=== PATIENT | female | born 1965 | race Caucasian/White ===

== ENCOUNTER → 2016-08-15 | Outpatient (CLI) | payer BC ==
[2016-08-15 14:33] LABS: ALBUMIN 3.7 GM/DL (3.2-5.2); ANION GAP 5 MEQ/L (8-16); BLOOD UREA NITROGEN 12 MG/DL (7-18); CALCIUM LEVEL 8.9 MG/DL (8.5-10.1); CARBON DIOXIDE LEVEL 32 MEQ/L (21-32); CHLORIDE LEVEL 104 MEQ/L (98-107); CREATININE FOR GFR 0.71 MG/DL (0.55-1.02); GLOMERULAR FILTRATION RATE > 60.0 (>51); GLUCOSE, FASTING 134 MG/DL (70-105); PHOSPHORUS LEVEL 3.2 MG/DL (2.5-4.9); POTASSIUM SERUM 4.1 MEQ/L (3.5-5.1); SODIUM LEVEL 141 MEQ/L (136-145)
== END ==
LOC: M SMT 08:26
PROVIDERS: ATTEND Internal Medicine Nephrology
DX: E10.21 Type 1 diabetes mellitus with diabetic nephropathy (principal)

== ENCOUNTER → 2017-11-04 | Outpatient (CLI) | payer OTHER ==
[2017-11-04 10:48] LABS: APPEARANCE, URINE CLEAR (CLEAR); BACTERIA, URINE AUTO NEGATIVE (NEGATIVE); BILIRUBIN, URINE AUTO NEGATIVE (NEGATIVE); BLOOD, URINE BLOOD NEGATIVE (NEGATIVE); COLOR, URINE YELLOW (YELLOW); GLUCOSE, URINE (UA) AUTO 3+ mg/dL (NEGATIVE); KETONE, URINE AUTO NEGATIVE (NEGATIVE); LEUKOCYTE ESTERASE, URINE AUTO NEGATIVE (NEGATIVE); MUCUS, URINE SMALL (NEGATIVE); NITRITE, URINE AUTO NEGATIVE (NEGATIVE); PROTEIN, URINE AUTO NEGATIVE (NEGATIVE); RBC, URINE AUTO 0 /HPF (0-3); SPECIFIC GRAVITY URINE AUTO 1.029 (1.002-1.035); SQUAMOUS EPITHELIAL CELL UR AU 1 /HPF (0-6); UROBILINOGEN, URINE AUTO 0.2 mg/dL (0.0-2.0); WBC, URINE AUTO 0 /HPF (0-3)
[2017-11-04 10:58] LABS: ESTIMATED AVERAGE GLUCOSE 183 MG/DL (60-110)
[2017-11-04 11:08] LABS: ALBUMIN 3.7 GM/DL (3.2-5.2); ANION GAP 6 MEQ/L (8-16); BLOOD UREA NITROGEN 13 MG/DL (7-18); CALCIUM LEVEL 8.9 MG/DL (8.5-10.1); CARBON DIOXIDE LEVEL 31 MEQ/L (21-32); CHLORIDE LEVEL 104 MEQ/L (98-107); CREATININE FOR GFR 0.73 MG/DL (0.55-1.30); GLOMERULAR FILTRATION RATE > 60.0 (>51); GLUCOSE, FASTING 175 MG/DL (70-100); PHOSPHORUS LEVEL 3.6 MG/DL (2.5-4.9); POTASSIUM SERUM 4.8 MEQ/L (3.5-5.1); SODIUM LEVEL 141 MEQ/L (136-145)
[2017-11-04 11:18] LABS: CREATININE, URINE 53.8 MG/DL; MALB URINE SIEMENS < 5.0 MG/L; MAU/CREAT RATIO 9.2 MCG/MG (0.0-30.0)
== END ==
LOC: M LAB 09:41
DX: E10.21 Type 1 diabetes mellitus with diabetic nephropathy (principal)
CPT/HCPCS: 80069

== ENCOUNTER → 2018-07-02 | Outpatient (CLI) | payer OTHER ==
[2018-07-02 07:13] LABS: APPEARANCE, URINE CLEAR (CLEAR); BACTERIA, URINE AUTO NEGATIVE (NEGATIVE); BILIRUBIN, URINE AUTO NEGATIVE (NEGATIVE); BLOOD, URINE BLOOD NEGATIVE (NEGATIVE); COLOR, URINE YELLOW (YELLOW); GLUCOSE, URINE (UA) AUTO 3+ mg/dL (NEGATIVE); KETONE, URINE AUTO NEGATIVE (NEGATIVE); LEUKOCYTE ESTERASE, URINE AUTO NEGATIVE (NEGATIVE); MUCUS, URINE SMALL (NEGATIVE); NITRITE, URINE AUTO NEGATIVE (NEGATIVE); PROTEIN, URINE AUTO NEGATIVE (NEGATIVE); RBC, URINE AUTO 1 /HPF (0-3); SQUAMOUS EPITHELIAL CELL UR AU 2 /HPF (0-6); UROBILINOGEN, URINE AUTO 0.2 mg/dL (0.0-2.0); WBC, URINE AUTO 3 /HPF (0-3)
[2018-07-02 07:29] LABS: HEMOGLOBIN A1c 8.7 %
[2018-07-02 07:43] LABS: BLOOD UREA NITROGEN 15 MG/DL (7-18); CALCIUM LEVEL 8.8 MG/DL (8.5-10.1); CARBON DIOXIDE LEVEL 26 MEQ/L (21-32); CHLORIDE LEVEL 102 MEQ/L (98-107); CREATININE FOR GFR 0.76 MG/DL (0.55-1.30); GLOMERULAR FILTRATION RATE > 60.0 (>51); GLUCOSE, FASTING 167 MG/DL (70-100); PHOSPHORUS LEVEL 3.7 MG/DL (2.5-4.9); SODIUM LEVEL 136 MEQ/L (136-145)
[2018-07-02 07:49] LABS: CREATININE, URINE 72.2 MG/DL; MALB URINE SIEMENS 6.2 MG/L; MAU/CREAT RATIO 8.5 MCG/MG (0.0-30.0)
== END ==
LOC: M LAB 06:51
PROVIDERS: ATTEND Internal Medicine Nephrology
DX: E10.21 Type 1 diabetes mellitus with diabetic nephropathy (principal)

== ENCOUNTER → 2019-12-30 | Outpatient (REF) | payer OTHER | LOC: M LAB REF 08:34 | PROVIDERS: ATTEND Internal Medicine | DX: E10.21 Type 1 diabetes mellitus with diabetic nephropathy (principal) ==

== ENCOUNTER → 2020-02-06 | Outpatient (REF) | payer OTHER ==
[2020-02-06 17:55] LABS: BACTERIA, URINE AUTO NEGATIVE (NEGATIVE); MUCUS, URINE SMALL (NEGATIVE); RBC, URINE AUTO 1 /HPF (0-3); SQUAMOUS EPITHELIAL CELL UR AU 3 /HPF (0-6); WBC, URINE AUTO 1 /HPF (0-3)
== END ==
LOC: M LAB REF 16:54
PROVIDERS: ATTEND Internal Medicine Nephrology
DX: E10.21 Type 1 diabetes mellitus with diabetic nephropathy (principal)

== ENCOUNTER 2020-08-18 19:41 | Emergency (ER) | payer OTHER ==
[~2020-08-18] VITALS: Ht 180.3 cm; Wt 100.9 kg
[2020-08-18] MEDS ORDERED: FARX1TAB5 PO (19:50)
[2020-08-18] MEDS ORDERED: SING10TA32 PO (19:50)
[2020-08-18] MEDS ORDERED: LOSA50TA88 PO (19:50)
[2020-08-18] MEDS ORDERED: HUMA100I3 SC (19:50)
[2020-08-18] MEDS ORDERED: VITMTA PO (19:50)
[2020-08-18] MEDS ORDERED: ASPI81CH33 PO (19:50)
[2020-08-18] MEDS ORDERED: SYMB16INH INH (19:50)
[2020-08-18] MEDS ORDERED: SPIR-10 PO (19:50)
--- NOTE | 2020-08-18 21:53 | REPVR ---
PROCEDURE INFORMATION: Exam: XR Left Knee Exam date and time: 08/18/2020 9:29 PM Age: 54 years old Clinical indication: Other: Fall over chair TECHNIQUE: Imaging protocol: XR Left knee. Views: 4 or more views. COMPARISON: No relevant prior studies available. FINDINGS: Bones/joints: Normal. Soft tissues: Normal. IMPRESSION: No acute findings. Electronically signed by: Oh Mancera On 08/18/2020 21:54:34 PM
--- NOTE | 2020-08-18 21:53 | REPVR ---
PROCEDURE INFORMATION: Exam: XR Left Ankle Exam date and time: 08/18/2020 9:29 PM Age: 54 years old Clinical indication: Other: Fall over chair TECHNIQUE: Imaging protocol: XR Left ankle. Views: 3 or more views. COMPARISON: No relevant prior studies available. FINDINGS: Bones/joints: Degenerative changes dorsal aspect of the midfoot. No fracture. Soft tissues: Soft tissue swelling at the level lateral malleolus. IMPRESSION: Soft tissue swelling at the level lateral malleolus. No fracture. Electronically signed by: Oh Mancera On 08/18/2020 21:54:04 PM
--- NOTE | 2020-08-18 21:54 | REPVR ---
PROCEDURE INFORMATION: Exam: XR Left Tibia and Fibula Exam date and time: 08/18/2020 9:29 PM Age: 54 years old Clinical indication: Other: Fall over chain; Additional info: Fall over chair TECHNIQUE: Imaging protocol: XR Left tibia and fibula. Views: 2 views. COMPARISON: No relevant prior studies available. FINDINGS: Bones/joints: Normal. Soft tissues: Normal. IMPRESSION: No acute findings. Electronically signed by: Oh Mancera On 08/18/2020 21:55:04 PM
[2020-08-18 22:20] VITALS: BP 141/69
== END 2020-08-18 22:33 | disposition home or self-care (01) ==
LOC: M ED 19:41
DX: S80.912A Unspecified superficial injury of left knee, initial encounter (principal); W01.0XXA Fall on same level from slipping, tripping and stumbling without subsequent striking against object, initial encounter; J45.909 Unspecified asthma, uncomplicated; E10.9 Type 1 diabetes mellitus without complications; Z79.82 Long term (current) use of aspirin; Z79.4 Long term (current) use of insulin; Z79.899 Other long term (current) drug therapy

== ENCOUNTER 2020-10-01 09:00 | Outpatient (RCR) | payer OTHER ==
[~2020-10-01 09:00] MED LIST: ASPI81CH33 PO; FARX1TAB5 PO; HUMA100I3 SC; LOSA50TA88 PO; SING10TA32 PO; SPIR-10 PO; SYMB16INH INH; VITMTA PO
== END 2020-10-04 ==
LOC: M PT 09:00
PROVIDERS: ATTEND Orthopaedic Surgery Sports Medicine
DX: Z47.89 Encounter for other orthopedic aftercare (principal); S93.402D Sprain of unspecified ligament of left ankle, subsequent encounter

== ENCOUNTER → 2020-10-03 | Outpatient (CLI) | payer OTHER ==
--- NOTE | 2020-10-05 10:49 | REP ---
INDICATION: PAIN LT KNEE POSSIBLE MEDIAL MENISCUS TEAR. COMPARISON: None TECHNIQUE: Sagittal spin-echo proton density, T2 STIR and T2 FLASH. Coronal spin-echo proton density and fat suppressed proton density. Axial fat suppressed proton density. FINDINGS: The anterior and posterior horns of the medial meniscus are within normal limits. The anterior and posterior horns of the lateral meniscus are within normal limits. The anterior and posterior cruciate ligaments are intact. The quadriceps and patellar tendons are intact. The medial and lateral collateral ligaments are intact. The medial and lateral patellar retinacula are intact. There is mild to moderate thinning of all articular cartilages. There is no joint effusion or Vasquez's cyst. Subtle patchy T2 hyper signal is seen in the proximal lateral tibial metaphysis. IMPRESSION: 1. There is mild proximal tibial marrow edema, as described above, likely secondary to a mild osseous contusion. 2. There is no evidence of acute internal derangement. 3. 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 <Electronically signed by Nolberto Wade > 10/05/20 [id number]
== END ==
LOC: M RAD 11:27
PROVIDERS: ATTEND Orthopaedic Surgery Sports Medicine
DX: M25.562 Pain in left knee (principal); S83.242D Other tear of medial meniscus, current injury, left knee, subsequent encounter; M94.262 Chondromalacia, left knee

== ENCOUNTER → 2020-11-03 | Outpatient (RCR) | payer OTHER | LOC: M PT 10-05 11:48 | PROVIDERS: ATTEND Orthopaedic Surgery Sports Medicine | DX: S93.402A Sprain of unspecified ligament of left ankle, initial encounter (principal); X58.XXXA Exposure to other specified factors, initial encounter; Y92.9 Unspecified place or not applicable ==

== ENCOUNTER 2020-11-10 15:54 | Emergency (ER) | payer OTHER ==
[~2020-11-10] VITALS: Ht 180.3 cm; Wt 102.3 kg
--- NOTE | 2020-11-10 17:32 | REP ---
INDICATION: swelling left leg. COMPARISON: None. TECHNIQUE: Left {lower extremity duplex venous scanning is performed from the groin to the ankle level. FINDINGS: The deep veins are anechoic and fully compressible from the groin to the popliteal fossa in the left lower extremity. Color flow imaging is homogeneous. Spectral Doppler interrogation demonstrates intact respiratory variation in flow and normal manual augmentation of flow. There is no evidence of deep vein thrombosis above the knee. There is no evidence of DVT in the visualized calf veins. Doppler interrogation of the contralateral common femoral vein shows normal coaptation with probe pressure. IMPRESSION: No evidence of DVT in the left lower extremity femoropopliteal veins. No DVT in the visible portions of the calf veins. <Electronically signed by Andi Shah > 11/10/20 1502
[2020-11-10 18:04] VITALS: BP 124/69
== END 2020-11-10 18:06 | disposition home or self-care (01) ==
LOC: M ED 15:54
DX: R22.42 Localized swelling, mass and lump, left lower limb (principal); E11.9 Type 2 diabetes mellitus without complications; I10 Essential (primary) hypertension; J45.909 Unspecified asthma, uncomplicated; Z79.4 Long term (current) use of insulin; Z79.82 Long term (current) use of aspirin; Z79.899 Other long term (current) drug therapy

== ENCOUNTER 2020-12-01 09:56 | Outpatient (RCR) | payer OTHER ==
[~2020-12-01 09:56] MED LIST changes: +LOSA50TA28 PO; -LOSA50TA88 PO
== END 2020-12-04 ==
LOC: M PT 09:56
PROVIDERS: ATTEND Orthopaedic Surgery Sports Medicine
DX: M25.562 Pain in left knee (principal)

== ENCOUNTER 2020-12-29 09:00 | Outpatient (RCR) | payer OTHER ==
[~2020-12-29 09:00] MED LIST changes: -LOSA50TA28 PO; +LOSA50TA88 PO
== END 2021-01-04 ==
LOC: M PT 09:00
PROVIDERS: ATTEND Orthopaedic Surgery Sports Medicine
DX: M25.562 Pain in left knee (principal)

== ENCOUNTER 2021-02-02 09:00 | Outpatient (RCR) | payer OTHER | END 2021-02-03 | LOC: M PT 09:00 | PROVIDERS: ATTEND Orthopaedic Surgery Sports Medicine | DX: M25.562 Pain in left knee (principal) ==

== ENCOUNTER → 2022-04-08 | Outpatient (CLI) | payer OTHER ==
[~2022-04-08] MED LIST changes: +LOSA50TA28 PO; -LOSA50TA88 PO
[2022-04-08 16:07] LABS: HEMOGLOBIN A1c 8.2 % (4.0-6.0)
== END ==
LOC: M LAB 15:42
PROVIDERS: ATTEND Internal Medicine
DX: E10.21 Type 1 diabetes mellitus with diabetic nephropathy (principal)

== ENCOUNTER 2022-08-22 06:30 | Day surgery (SDC) | payer OTHER ==
[~2022-08-22] VITALS: Ht 180.3 cm; Wt 96.5 kg
[~2022-08-22 06:30] MED LIST changes: +ATOR1TAB19 PO; +FARX1TAB3 PO; +MONT-5 PO; +MONT10TA97 PO; -SING10TA32 PO
[2022-08-22] MEDS ORDERED: LIDOCAINE 2% 100MG/5ML SDV (FOR ANES.) As Ordered ONE (08:03)
[2022-08-22] MEDS ORDERED: propofoL 200 MG/20 ML VIAL As Ordered ONE (08:03)
[2022-08-22 08:05] VITALS: BP 119/57
== END 2022-08-22 08:20 | disposition home or self-care (01) ==
LOC: M OPP 06:30
PROVIDERS: ATTEND Surgery
DX: Z12.11 Encounter for screening for malignant neoplasm of colon (principal); K64.0 First degree hemorrhoids

== ENCOUNTER → 2022-10-20 | Outpatient (REF) | LOC: M EMP 13:58 | PROVIDERS: ATTEND Family Medicine | DX: Z11.52 Encounter for screening for COVID-19 (principal) ==

== ENCOUNTER → 2023-04-02 | Outpatient (REF) | payer OTHER | LOC: M LAB REF 12:06 | PROVIDERS: ATTEND Ophthalmology | DX: D23.122 Other benign neoplasm of skin of left lower eyelid, including canthus (principal) ==

== ENCOUNTER → 2024-01-24 | Outpatient (CLI) | payer OTHER | LOC: M SOG 07:28 | PROVIDERS: ATTEND Physician Assistant | DX: M79.641 Pain in right hand (principal) ==

== ENCOUNTER → 2024-05-20 | Outpatient (CLI) | payer OTHER ==
[2024-05-20 09:40] LABS: HEMOGLOBIN A1c 7.3 % (4.0-6.0)
== END ==
LOC: M LAB 07:30
PROVIDERS: ATTEND Internal Medicine Endocrinology, Diabetes & Metabolism
DX: E10.21 Type 1 diabetes mellitus with diabetic nephropathy (principal)

== ENCOUNTER → 2025-02-14 | Outpatient (CLI) | payer OTHER | LOC: M RAD 08:06 | PROVIDERS: ATTEND Podiatrist | DX: M76.71 Peroneal tendinitis, right leg (principal); M19.071 Primary osteoarthritis, right ankle and foot ==